=== PATIENT | male | born 1970 | race Caucasian/White ===

== ENCOUNTER 2020-10-23 03:23 | Emergency (ER) | payer BC ==
[~2020-10-23] VITALS: Ht 185.4 cm; Wt 101.1 kg
[~2020-10-23 03:23] MED LIST: ASPI-875 PO; OMG1KC PO; OXYC-12 PO; OXYC1TAB87 PO; SULF1TAB35 PO; TMSL.4C PO
--- NOTE | 2020-10-23 04:09 | ED General ---
General Chief Complaint: General Problems/Pain Stated Complaint: LEG CRAMPS & NAUSEA Source of Information: Patient Exam Limitations: No Limitations History of Present Illness Date Seen by Provider: October 23, 2020 Time Seen by Provider: 03:30 Initial Comments Patient is a 49-year-old male who presents to the emergency department by garry mancini this evening from home with a chief complaint of severe all over leg cramps arm and hand cramps. He had onset of nausea early this morning and this precipitated his cramps. 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 He is on a study drug through [id number]. He had a urology visit earlier today and was started on some Flomax and oxybutynin. Patient was unsure if the oxybutynin and Flomax potentially precipitated his nausea and vomiting. Patient had multiple episodes of vomiting approximately 5. He laid in his bathroom floor after his onset of vomiting and was unable to get up secondary to the muscle spasms and jerking in his ALS. His states that he routinely battles leg stiffness. He is supposed to be getting a electric wheelchair tomorrow and then a medication through [facility] for muscle relaxation. He states that his biggest fight right now is lack of sleep secondary to the muscle spasms and cramps. He is requesting something for the pain secondary to the cramps and spasms. No recent febrile illnesses. No significant abdominal pain. No urinary or GI complaints. All other review of systems reviewed and negative except as stated above. Timing/Duration: 1-3 Hours Severity: Severe Associated Systoms: Weakness Allergies and Home Medications Allergies Coded Allergies: No Known Drug Allergies (Unverified , 03/27/12) Home Medications [place] 3 Polyunsat Fatty Acids 1,000 Mg Cap, 1,000 MG PO BID, (Reported) Oxycodone HCl/Acetaminophen 1 Each Tablet, 1 EACH PO Q6H PRN for PAIN Prescribed by: UMAIR GALEANA on 05/16/16 1111 Oxycodone Hcl/Acetaminophen 1 Each Tablet, 1-2 TAB PO Q4H PRN, (Reported) Sulfamethoxazole/Trimethoprim 1 Each Tablet, 1 EACH PO BID Prescribed by: UMAIR GALEANA on 05/16/16 1111 Tamsulosin HCl 0.4 Mg Cap, 0.4 MG PO DAILY Prescribed by: UMAIR GALEANA on 05/16/16 1111 Patient Home Medication List Home Medication List Reviewed: Yes Review of Systems Review of Systems Constitutional: see HPI EENTM: no symptoms reported Respiratory: no symptoms reported Cardiovascular: no symptoms reported Gastrointestinal: nausea, vomiting, other ("Sour stomach") Genitourinary: no symptoms reported Musculoskeletal: muscle pain, muscle stiffness, muscle cramps, muscle weakness Skin: no symptoms reported Psychiatric/Neurological: Anxiety All Other Systems Reviewed Negative Unless Noted: Yes Past Jimzyei-Pinnkr-Hzxnpv Hx Patient Social History Alcohol Use: Denies Use Recent Hopitalizations: No Past Medical History Surgeries: Yes (FATTY LUMPS REMOVED) Appendectomy Respiratory: Yes COPD Cardiac: Yes Heart Attack Neurological: Yes ALS/Paty Gehrig's Reproductive Disorders: No Genitourinary: No Gastrointestinal: No Musculoskeletal: No Endocrine: No HEENT: No Cancer: No Psychosocial: No Integumentary: Yes Psoriasis Physical Exam Vital Signs Vital Signs - First Documented 10/23/20 03:28 Temp 36.4 Pulse 88 Resp 20 B/P (MAP) 118/82 (94) Pulse Ox 96 O2 Delivery Nasal Cannula O2 Flow Rate 2.00 Capillary Refill : Height, Weight, BMI Height: 6'2" Weight: 240lbs. oz. [phone]; BMI Method:Stated General Appearance: No Apparent Distress, WD/WN Eyes: Bilateral Eye Normal Inspection, Bilateral Eye PERRL, Bilateral Eye EOMI HEENT: PERRL/EOMI Respiratory: Lungs Clear, Normal Breath Sounds, No Accessory Muscle Use, No Respiratory Distress Cardiovascular: Regular Rate, Rhythm Gastrointestinal: Non Tender, Soft Extremity: Normal Inspection, Non Tender, No Calf Tenderness, Other (Decreased range of motion and strength in all of his extremities secondary to ALS. Praful taylor has fairly stiff muscles in the right lower extremity greater than the left lower extremity) Neurologic/Psychiatric: Alert, Oriented x3, Normal Mood/Affect Skin: Normal Color, Warm/Dry, Other (Patchy psoriatic plaque noted to the bilateral lower extremities, scattered ecchymosis secondary to medication injections over the abdominal wall) Progress/Results/Core Measures Suspected Sepsis SIRS Temperature: Pulse: Respiratory Rate: Blood Pressure / Mean: Laboratory Tests 10/23/20 03:30: Creatinine 0.76 Results/Orders Lab Results Laboratory Tests Test 10/23/20 03:30 Range/Units Sodium Level 142 135-145 MMOL/L Potassium Level 3.7 3.6-5.0 MMOL/L Chloride Level 104 98-107 MMOL/L Carbon Dioxide Level 26 21-32 MMOL/L Anion Gap 12 5-14 MMOL/L Blood Urea Nitrogen 20 H 7-18 MG/DL Creatinine 0.76 0.60-1.30 MG/DL Estimat Glomerular Filtration Rate > 60 BUN/Creatinine Ratio 26 Glucose Level 140 H 70-105 MG/DL Calcium Level 9.3 8.5-10.1 MG/DL My Orders Orders - LISSETH TALLEY MD Ed Iv/Invasive Line Start (10/23/20 04:02) Basic Metabolic Panel (10/23/20 04:02) Orphenadrine Inj (Ed Only) (Norflex Inje (10/23/20 04:15) Orphenadrine Inj (Ed Only) (Norflex Inje (10/23/20 04:45) Medications Given in ED Current Medications Medications Dose Ordered Sig/Ronni Route Start Time Stop Time Status Last Admin Dose Admin Orphenadrine Citrate 30 mg ONCE ONCE IV 10/23/20 04:15 10/23/20 04:16 DC 10/23/20 04:12 30 MG Orphenadrine Citrate 30 mg ONCE ONCE IV 10/23/20 04:45 10/23/20 04:46 DC 10/23/20 04:47 30 MG Vital Signs/I&O 10/23/20 03:28 Temp 36.4 Pulse 88 Resp 20 B/P (MAP) 118/82 (94) Pulse Ox 96 O2 Delivery Nasal Cannula O2 Flow Rate 2.00 Capillary Refill : Progress Note : Time: 04:41 Progress Note Notified by ROGER Isbell that the patient is starting to have spasms again. We will give him another 30 mg of Norflex IV. Patient's is going to follow-up with [facility] later today regarding medications for his spasms. Departure Impression Primary Impression: Myalgia Additional Impression: Anxiety Disposition: 01 HOME, SELF-CARE Condition: Stable Departure-Patient Inst. Decision time for Depature: 04:51 Referrals: LORRAINE BOLTON DO (PCP/Family) Primary Care Physician Patient Instructions: Anxiety, Adult ED, Muscle Spasms (DC) Add. Discharge Instructions: Contacted [facility] today for further direction and management of your muscle spasms. Follow-up with your primary care provider as needed. Return to the emergency room for any new, concerning or emergent complaints. Copy Copies To 1: LORRAINE BOLTON KATHRYN M MD October 23, 2020 04:09
[2020-10-23 04:11] LABS: CHLORIDE 104 MMOL/L (98-107); POTASSIUM 3.7 MMOL/L (3.6-5.0); SODIUM 142 MMOL/L (135-145)
[2020-10-23 04:12] LABS: CALCIUM 9.3 MG/DL (8.5-10.1); GLUCOSE 140 MG/DL (70-105)
[2020-10-23 04:14] LABS: CARBON DIOXIDE 26 MMOL/L (21-32)
[2020-10-23] MEDS ORDERED: ORPHENADRINE 60 MG/2 ML (NORFLEX) AMP (ED ONLY) IV ONE ×2 (04:15→04:45)
[2020-10-23 04:16] LABS: CREATININE SERUM 0.76 MG/DL (0.60-1.30); GFR ESTIMATED > 60
[2020-10-23 04:17] LABS: BUN/CREATININE RATIO 26
[2020-10-23 05:56] VITALS: BP 126/85
== END 2020-10-23 05:56 | disposition home or self-care (01) ==
LOC: EDUNIT# 03:23 → ER 03:28
DX: M79.10 Myalgia, unspecified site (principal); F41.9 Anxiety disorder, unspecified; G12.21 Amyotrophic lateral sclerosis; L40.0 Psoriasis vulgaris; R58 Hemorrhage, not elsewhere classified; J44.9 Chronic obstructive pulmonary disease, unspecified
CPT/HCPCS: 36415; 80048; 99283

== ENCOUNTER → 2020-11-27 | Outpatient (CLI) | payer BC ==
[2020-11-27 14:18] LABS: ALANINE AMINOTRANSFERASE 34 U/L (0-55); ALBUMIN 4.3 GM/DL (3.2-4.5); ALKALINE PHOSPHATASE 81 U/L (40-136); BILIRUBIN,TOTAL 0.4 MG/DL (0.1-1.0); BUN/CREATININE RATIO 22; CALCIUM 9.7 MG/DL (8.5-10.1); CARBON DIOXIDE 26 MMOL/L (21-32); CHLORIDE 103 MMOL/L (98-107); CREATININE SERUM 0.69 MG/DL (0.60-1.30); GFR ESTIMATED > 60; GLUCOSE 83 MG/DL (70-105); SODIUM 141 MMOL/L (135-145); TOTAL PROTEIN 7.3 GM/DL (6.4-8.2)
== END ==
LOC: LABNPT 10:20
PROVIDERS: ATTEND Internal Medicine
DX: G12.21 Amyotrophic lateral sclerosis (principal)
CPT/HCPCS: 80053

== ENCOUNTER → 2021-01-24 | Outpatient (CLI) | payer BC ==
[~2021-01-24] MED LIST changes: -SULF1TAB35 PO; +SULF1TAB38 PO
[2021-01-24 09:40] LABS: BASOPHILS % (AUTO) 1 % (0-10); EOSINOPHILS # (AUTO) 0.2 10^3/uL (0.0-0.3); EOSINOPHILS % (AUTO) 3 % (0-10); HEMATOCRIT 43 % (40-54); HEMOGLOBIN 14.6 g/dL (13.3-17.7); LYMPHOCYTES % (AUTO) 40 % (12-44); MEAN CORPUSCULAR HEMOGLOBIN 30 pg (25-34); MEAN CORPUSCULAR HGB CONC 34 g/dL (32-36); MEAN CORPUSCULAR VOLUME 87 fL (80-99); MEAN PLATELET VOLUME 11.6 fL (9.0-12.2); MONOCYTES # (AUTO) 0.5 10^3/uL (0.0-1.0); MONOCYTES % (AUTO) 10 % (0-12); NEUTROPHILS # (AUTO) 2.3 10^3/uL (1.8-7.8); NEUTROPHILS % (AUTO) 46 % (42-75); PLATELET COUNT 198 10^3/uL (130-400); WHITE BLOOD COUNT 5.1 10^3/uL (4.3-11.0)
[2021-01-24 09:59] LABS: ALBUMIN 4.2 GM/DL (3.2-4.5); BILIRUBIN,TOTAL 0.5 MG/DL (0.1-1.0); CALCIUM 9.5 MG/DL (8.5-10.1); CREATININE SERUM 0.7 MG/DL (0.60-1.30); POTASSIUM 3.8 MMOL/L (3.6-5.0); TOTAL PROTEIN 7.1 GM/DL (6.4-8.2)
== END ==
LOC: LABNPT 09:35
PROVIDERS: ATTEND Internal Medicine
DX: G12.21 Amyotrophic lateral sclerosis (principal)
CPT/HCPCS: 80053; 85025